=== PATIENT | female | born 1995 | race Caucasian/White ===

== ENCOUNTER 2024-11-20 14:14 | Emergency (ER) | payer OTHER, SELFPAY ==
[2024-11-20 15:05] VITALS: BP 92/56
--- NOTE | 2024-11-20 16:24 | ED.SKININJ ---
HPI-Injury
General
Chief Complaint: Bite
Source: patient
Exam Limitations: none
Time Seen by Provider: 11/20/24 15:37
Nursing documentation reviewed up to this point in time: agreed with
History of Present Illness-Injury
Is this injury a work related problem?: No
Is pt an associate of [facility]?: No
Initial Injury comments:
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 The dog is up-to-date on all vaccinations. She is unsure when the last tetanus
shot was. Denies any additional injuries other than a bite to the chin itself.
Review of Systems
Review of Systems
Allergies reviewed?: Yes
All Other Systems: ROS reviewed and negative except as documented in HPI and ROS
Phy Exam
Physical Exam
Physical Exam:
GENERAL: Alert , in no apparent distress
EYE: pupils equal and reactive
NECK: Supple, no significant adenopathy.
ENT: 2 lacerations subcutaneous in depth to the chin. The laceration extends just through the vermilion border on the left side laceration is 2 cm in total length there is another laceration that is L-shaped at midline of the chin 2.5 cm in total
length. o/p clr, mmm.
CARDIAC: Regular rate and rhythm .
LUNGS: Clear breath sounds bilaterally, no acute respiratory distress, no wheezes/rales/rhonchi
ABDOMEN: Soft, without focal tenderness, no r/g, no cvat
NEUROLOGICAL: Alert and oriented, no focal neuro deficits
SKIN: Warm and dry, skin intact.
MUSCULOSKELETAL: No edema, well perfused.
PSYCH: Normal and appropriate interaction.
Course
Orders/Labs/Results
Orders:
Orders
11/20/24 16:24
Amoxicillin 875 mg/Clav 125 mg [Augmentin 875 mg/125 mg] 1 tablet PO NOW STA
Tetanus/Diphth/Acelpertussis [Adacel] 0.5 ml IM .ONCE ONE
Vital Signs
Initial and Last Documented VS:
Initial Vital Signs
Temp Pulse Resp BP Pulse Ox
98.1 F 75 18 92/56 98
11/20/24 15:05 11/20/24 15:05 11/20/24 15:05 11/20/24 15:05 11/20/24 15:05
Last Documented Vital Signs
Temp Pulse Resp BP Pulse Ox
98.1 F 75 18 92/56 98
11/20/24 15:05 11/20/24 15:05 11/20/24 15:05 11/20/24 15:05 11/20/24 15:05
Procedures
Laceration Closure
Chin:
Status of Wound: clean
Size of Wound in cm: 4.5 (2 separate lacerations)
Description of Wound Edges: sharp
Preparation: cleaned with saline
Anesthesia: 1% Lidocaine with epi
Revision/Debridement: routine- no revision and irrigate-direct pressure
Wound exploration: explored to base- no FB and no tendon involvement
Type of Closure: single layer closure and interrupted sutures
Skin Closure Material: 5-0 nylon
Number of sutures: 8
Additional information:
4 sutures used in each laceration
MDM/Problems Addressed
MDM/Problems Addressed:
29-year-old female presenting to the emergency department today with concerns of a dog bite to her chin. She was started on Augmentin here and given an updated tetanus shot. The dog is very low risk for rabies and does have all vaccinations.
Laceration was cleaned thoroughly and due to its location on her face without significant risk of infection this was closed after risk and benefit assessment. Otherwise stable for outpatient management return precautions given. Advised for suture
removal in 5 to 7 days.
*Critical Care Note
Total Time (30-74mins, 75-104mins- exclusive of procedures): Not Applicable
ED Attending Note
-
Portions of this chart may have been created with voice recognition software.� Occasional wrong word or��sound alike� substitutions may have occurred due to the inherent limitations of voice recognition software.
Discharge Plan
Departure
Patient Disposition: Home (Routine Discharge)
Date of Disposition: 11/20/24
Time of Disposition: 16:29
Patient with high blood pressure during this ER visit?: No
Condition: Good
Covid-19: Not Applicable
Discharge Problem:
Dog bite of face
Instructions: Animal Bites (DC)
Prescriptions:
New
amoxicillin-pot clavulanate 875-125 mg tablet
1 tab PO BID 3 Days Qty: 6 0RF
Referrals:
Josh Martin, [Family Provider] -
Activity Restrictions/Additional Instructions:
You came to the emergency department today with concerns of a laceration to your chin from a dog bite. Please keep the area clean covered and follow-up in 6 to 7 days for suture removal. Please take the prescribed antibiotic to reduce risk of
infection. Return for any worsening, new or concerning symptoms.
Interventions
Interventions:
*Risk Screen - Suicide Last Done: 11/20/24 14:56
*General Assessment Last Done: 11/20/24 14:56
*Neglect/Abuse Screening Last Done: 11/20/24 14:56
Discharge Date and Time
Print Language: NEPALI
[2024-11-20] MEDS: AUGMENTIN 875 MG/125 MG 1 TABLET PO (16:50)
[2024-11-20] MEDS: ADACEL 0.5 ML IM (16:54)
== END 2024-11-20 16:59 | disposition home or self-care (01) ==
LOC: EMR 14:14
PROVIDERS: EMERGENCY PHYSICIAN Emergency Medicine; FAMILY PHYSICIAN Family Medicine
DX: S01.85XA Open bite of other part of head, initial encounter (principal); W54.0XXA Bitten by dog, initial encounter; Z23 Encounter for immunization
CPT/HCPCS: 99282; 12013; 90471; 90715

== ENCOUNTER 2024-11-23 02:01 | Inpatient (IN) | payer OTHER, SELFPAY ==
[2024-11-22 19:28] VITALS: BP 153/88
[2024-11-22 19:43] LABS: % Basophils 1.1 % (0-2); % Eosinophils 4.3 % (0-6); % Immature Granulocytes 0.2 % (0-0.5); % Lymphocytes 30.7 % (20.5-51.1); % Monocytes 10.8 % (1.7-9.3); % Neutrophils 52.9 % (42.2-75.2); Absolute Basophils 0.1 10^3/uL (0-0.2); Absolute Eosinophils 0.2 10^3/uL (0-0.7); Absolute Lymphocytes 1.7 10^3/uL (1.2-3.4); Absolute Monocytes 0.6 10^3/uL (0.1-0.6); Absolute Neutrophils 2.9 10^3/uL (1.4-6.5); Hematocrit 38.7 % (37.0-47.0); Hemoglobin 12.8 g/dL (12.0-16.0); Mean Corp Hgb Conc. 33.1 g/dL (33.0-37.0); Mean Corpuscular Hgb 27.6 pg (27.0-31.0); Mean Corpuscular Volume 83.4 fL (81.0-99.0); Mean Platelet Volume 9.8 fL (7.4-10.4); Nucleated Red Blood Cells % 0 %; Platelet Count 208 10^3/uL (130-400); Red Blood Cell Count 4.64 10^6/uL (4.20-5.40); Red Cell Dist. Width 13.2 % (11.5-14.5); White Blood Cell Count 5.4 10^3/uL (4.8-10.8)
[2024-11-22 19:54] LABS: Lactic Acid 0.7 mmol/L (0.7-2.0)
[2024-11-22 19:58] LABS: HCG, Serum Qualitative Screen Negative
[2024-11-22 20:03] LABS: ALT (SGPT) 16 U/L (0-35); AST (SGOT) 24 U/L (14-36); Albumin 4.3 g/dl (3.5-5.0); Alkaline Phosphatase 65 U/L (38-126); Blood Urea Nitrogen 11 mg/dl (7-17); Carbon Dioxide 27 mmol/L (22-30); Chloride 106 mmol/L (98-107); Glucose 103 mg/dl (70-99); Potassium 4.6 mmol/L (3.5-5.1); Sodium 140 mmol/L (135-145); Total Bilirubin 0.4 mg/dl (0.2-1.3); eGFR > 60.00
[2024-11-22 21:53] VITALS: BMI 23.0
[2024-11-22 22:05] VITALS: BP 114/62
--- NOTE | 2024-11-22 22:54 | ED.GENMED ---
History of Present Illness
<Rozina Barrera PA-C - Last Filed: 11/23/24 01:59>
General
Chief Complaint: Wound Check/Suture Removal
Source: patient
Exam Limitations: none
Time Seen by Provider: 11/22/24 22:53
Nursing documentation reviewed up to this point in time: agreed with
History of Present Illness
History of Present Illness:
29-year-old female with no past medical history presents emergency department today with concerns of purulent drainage from her sutured wounds starting yesterday. Of note, patient reports that 3 days ago, she was bitten by a boxer dog at her
clients home. Patient was seen in our emergency department and had wounds sutured and was started on Augmentin. She had 5 doses of Augmentin. Her last dose was this morning. Patient reports that today at home, she did have a temperature of 100.1.
She denies any nausea or vomiting. She denies any abdominal pain, chest pain, shortness of breath. Patient states that she started noticing that left side of her her jaw started to have pain and she had purulent drainage noted from both of her
lacerations. She also notes lip swelling and significant pain with eating. She denies any lip involvement of her laceration.
Review of Systems
<Rozina Barrera PA-C - Last Filed: 11/23/24 01:59>
Review of Systems
All Other Systems: ROS reviewed and negative except as documented in HPI and ROS
Phy Exam
<Rozina Barrera PA-C - Last Filed: 11/23/24 01:59>
Physical Exam
Physical Exam:
General: Patient is well appearing and in no acute distress; non-toxic
Skin: Two, 4.5 cm lacerations noted to chin with surrounding erythema and purulent drainage
Head: Normocephalic, atraumatic. Left sided submandibular fullness noted.
Eyes: Sclera non-icteric. EOMs intact.
Cardiac: Regular rate and rhythm
Peripheral Vascular: No lower extremity swelling or edema
Pulm: Normal respiratory effort
Musculoskeletal: TMJ joints intact bilaterally
Neuro: CN II-XII intact, no focal neurologic deficits.
Psychiatric: Appropriate mood and affect.
Course
<Rozina Barrera PA-C - Last Filed: 11/23/24 01:59>
Orders/Labs/Results
Orders:
Orders
11/22/24 19:31
Test Result ONCE
11/22/24 19:36
Complete Blood Count/With Diff Urgent
Comprehensive Metabolic Panel Urgent
HCG, Serum Qualitative Screen Urgent
Lactic Acid Urgent
11/22/24 23:14
0.9% Sodium Chloride 1000 ml [Nss] 1,000 ml IV BOLUS
Ketorolac [Toradol] 30 mg IV NOW STA
11/23/24 00:01
CT Facial Bones W/ Iv Contrast Urgent
Reason For Exam: left sided facial pain, swelling
11/23/24 00:40
Wound Culture [Wound/Abscess/Other Culture] Urgent
ARELIS Source: Abscess
Specimen Description:
Date Specimen was Collected: 11/23/24
Time Specimen was Collected: 00:34
11/23/24 01:06
Ampicillin/Sulbactam 3 G [Unasyn] 3 gm 0.9% Sodium Chloride 100 ml [Nss] 100 ml IV NOW
11/23/24 01:42
Admit/Transfer Patient As Directed
Co-Sign Provider:
Level of Care: Inpatient admission
Assign to:: Medical/Surgical
Physician / Group: Catracho
Diagnosis: Facial Cellulitis / Abscess, Dog Bite
Reason for Hospitalization: Facial Cellulitis / Abscess, Dog Bite
Expected length of stay greater than two midnights?: Yes
ELOS- Estimated Length of Stay in days: 2
I certify the patient meets the requirements for IP care: Yes
Ampicillin/Sulbactam 3 G [Unasyn] 3 gm 0.9% Sodium Chloride 100 ml [Nss] 100 ml IV NOW
PRN Pain Medication Management As Directed
May give lesser potent ordered pain med per pt: Yes
preference::
Protocol:: Medication orders for pain may be administered in a
manner that supports deferring to patient preference
when the pt is:
- Requesting an ordered lesser potent pain medication.
Least to most potent pain medications are defined
as: acetaminophen < NSAID < tramadol < opioids
(morphine, oxycodone, hydromorphone).
- Requesting a lesser dose of the same medication IF
ORDERED.
- Requesting a less intrusive route of administration
if both routes are prescribed by the provider (PO <
IV).
11/23/24 01:43
Code Status As Directed
Resuscitation Status: Full Code
Abnormal Lab Results
11/22/24
19:36
Monocytes % 10.8 H %
(1.7-9.3)
Glucose 103 H mg/dl
(70-99)
11/22/24 19:36
11/22/24 19:36
Vital Signs
Initial and Last Documented VS:
Initial Vital Signs
Temp Pulse Resp BP Pulse Ox
98.6 F 60 20 153/88 99
11/22/24 19:28 11/22/24 19:28 11/22/24 19:28 11/22/24 19:28 11/22/24 19:28
Last Documented Vital Signs
Temp Pulse Resp BP Pulse Ox
98.4 F 56 16 103/61 99
11/23/24 00:56 11/23/24 00:56 11/23/24 00:56 11/23/24 00:56 11/23/24 00:56
<Kurt Iverson MD - Last Filed: 11/23/24 00:53>
Orders/Labs/Results
Orders:
Orders
11/22/24 19:31
Test Result ONCE
11/22/24 19:36
Complete Blood Count/With Diff Urgent
Comprehensive Metabolic Panel Urgent
HCG, Serum Qualitative Screen Urgent
Lactic Acid Urgent
11/22/24 23:14
0.9% Sodium Chloride 1000 ml [Nss] 1,000 ml IV BOLUS
Ketorolac [Toradol] 30 mg IV NOW STA
11/23/24 00:01
CT Facial Bones W/ Iv Contrast Urgent
Reason For Exam: left sided facial pain, swelling
11/23/24 00:40
Wound Culture [Wound/Abscess/Other Culture] Urgent
ARELIS Source: Abscess
Specimen Description:
Date Specimen was Collected: 11/23/24
Time Specimen was Collected: 00:34
11/23/24 01:06
Ampicillin/Sulbactam 3 G [Unasyn] 3 gm 0.9% Sodium Chloride 100 ml [Nss] 100 ml IV NOW
11/23/24 01:42
Admit/Transfer Patient As Directed
Co-Sign Provider:
Level of Care: Inpatient admission
Assign to:: Medical/Surgical
Physician / Group: Catracho
Diagnosis: Facial Cellulitis / Abscess, Dog Bite
Reason for Hospitalization: Facial Cellulitis / Abscess, Dog Bite
Expected length of stay greater than two midnights?: Yes
ELOS- Estimated Length of Stay in days: 2
I certify the patient meets the requirements for IP care: Yes
Ampicillin/Sulbactam 3 G [Unasyn] 3 gm 0.9% Sodium Chloride 100 ml [Nss] 100 ml IV NOW
PRN Pain Medication Management As Directed
May give lesser potent ordered pain med per pt: Yes
preference::
Protocol:: Medication orders for pain may be administered in a
manner that supports deferring to patient preference
when the pt is:
- Requesting an ordered lesser potent pain medication.
Least to most potent pain medications are defined
as: acetaminophen < NSAID < tramadol < opioids
(morphine, oxycodone, hydromorphone).
- Requesting a lesser dose of the same medication IF
ORDERED.
- Requesting a less intrusive route of administration
if both routes are prescribed by the provider (PO <
IV).
11/23/24 01:43
Code Status As Directed
Resuscitation Status: Full Code
Abnormal Lab Results
11/22/24
19:36
Monocytes % 10.8 H %
(1.7-9.3)
Glucose 103 H mg/dl
(70-99)
11/22/24 19:36
11/22/24 19:36
Vital Signs
Initial and Last Documented VS:
Initial Vital Signs
Temp Pulse Resp BP Pulse Ox
98.6 F 60 20 153/88 99
11/22/24 19:28 11/22/24 19:28 11/22/24 19:28 11/22/24 19:28 11/22/24 19:28
Last Documented Vital Signs
Temp Pulse Resp BP Pulse Ox
98.4 F 56 16 103/61 99
11/23/24 00:56 11/23/24 00:56 11/23/24 00:56 11/23/24 00:56 11/23/24 00:56
<Rozina Barrera PA-C - Last Filed: 11/23/24 01:59>
MDM/Problems Addressed
Differential Diagnosis Includes:
ddx include suture abscess, cellulitis, sublingual/submandibular space infection
MDM/Problems Addressed:
29-year-old female presents emergency department today with concerns of purulent drainage from her sutured lacerations following a dog bite 3 days ago. She also has pain that extends into her left face and left jaw. She states that she has a lot
of pain with eating. Her lip started to swell as well. On exam, she does have a lot of purulent drainage from facial lacerations, with stitches removed from her lacerations swabs taken from the wound. She did have 5 doses of Augmentin. She will
likely require admission for IV abx.
Update decision made to admit patient in light of submandibular swelling. Will start unasyn. Stitches remoed. Case reviewed with attending. Pt referred for admission.
Chronic conditions affecting care:
n/a
<Rozina Barrera PA-C - Last Filed: 11/23/24 01:59>
*Pulse Oximetry
Patient hypoxic: no
*Critical Care Note
Total Time (30-74mins, 75-104mins- exclusive of procedures): Not Applicable
ED Attending Note
<Rozina Barrera PA-C - Last Filed: 11/23/24 01:59>
-
Portions of this chart may have been created with voice recognition software.� Occasional wrong word or��sound alike� substitutions may have occurred due to the inherent limitations of voice recognition software.
<Kurt Iverson MD - Last Filed: 11/23/24 00:53>
ED Attending Note
Patient seen and examined by attending physician: Yes
I performed the substantive portion of visit, reviewed & personally made and approve the management plan that is documented in note by myself or SAMANTHA.: Yes
ED Attending Note:
Patient bit by a dog 2+ days ago. Carefully irrigated sutured Augmentin started. However noted drainage swelling low-grade fever and swelling to her mandible.
On exam there is some erythema and swelling at the left mandible. No trismus no drooling or stridor. Wounds have been opened and sutures removed. Some mild drainage.
Impression is local infection secondary to dog bite with some extension to the mandible. CT scan pending. With the extension of the mandible patient will be admitted for IV antibiotics
Discharge Plan
Departure
Patient Disposition: Admit
Date of Disposition: 11/23/24
Time of Disposition: 01:07
Admit to: Med/Surg
Presentation/result/management discussed w/ accepting MD/DO: Hospitalist
Patient with high blood pressure during this ER visit?: Yes
Condition: Fair
Discharge Problem:
Infected dog bite
Prescriptions:
No Action
amoxicillin-pot clavulanate 875-125 mg tablet
1 tab PO BID 3 Days Qty: 6 0RF
escitalopram oxalate [Lexapro] 10 mg Tablet
10 mg PO DAILY
Referrals:
Josh Martin DO [Family Provider] -
Interventions
Interventions:
*Risk Screen - Suicide Last Done: 11/22/24 21:53
*General Assessment Last Done: 11/22/24 19:28
*Neglect/Abuse Screening Last Done: 11/22/24 21:53
*ED COVID-19 Vaccine History Last Done: 11/22/24 21:53
ED-Skin Assessment Last Done: 11/22/24 21:53
Discharge Date and Time
Print Language: GREEK
[2024-11-22] MEDS: TORADOL 30 MG IV (23:46)
[2024-11-22] MEDS: NSS 1000 IV (23:47)
[2024-11-23 00:56] VITALS: BP 103/61
--- NOTE | 2024-11-23 01:45 | HPS.HSE ---
Family Physician
-
Family Physician: Josh Martin
Chief Complaint
-
Facial Pain / Swelling / Discharge
History of Present Illness
Patient is a 29y F with no significant PMH who presents to ED complaining of pain, swelling, redness and discharge from the L lower lip / face. Patient states that she was bitten by a dog on 11/20. She presented immediately to the ED where the
wound was cleaned and two wounds (L lower lip / center of chin) were closed with 4 sutures each. Patient was prescribed Augmentin and discharged to home. She received an updated tetanus booster during that visit. Patient states that the dog is up
to date with all vaccinations (received documentation from the dog's owners).
Patient reports that she had a fever on Saturday. Today she noted increased swelling along the L mandible and swollen / painful lymph nodes under the jaw. She also appreciated purulent appearing drainage / discharge from the laceration sites.
Patient presented to the ED for further evaluation and treatment.
In the ED, sutures were removed and wounds cleaned. Some purulent material was expressed from the lacerations.
Medical History
Past Medical History
Past Medical History: Reports Other
Additional Past Medical History:
Anxiety / Depression
Past Surgical History: Reports Other
Additional Past Surgical History:
Bilateral Hip Surgeries / Labrum Repairs
Social History
Tobacco: Non-smoker
Alcohol: Occasional
Drug: None
Family History
Family History: Not pertinent
Allergies / Home Medications
Allergies reflects when Allergies were last updated in [facility].
Home Medications with original date entered in [facility]
Allergy/Medication List:
Allergies
Allergy/AdvReac Type Severity Reaction Status Date / Time
gluten Allergy Unknown Verified 11/22/24 19:28
Milk Containing Products Allergy Unknown Verified 11/22/24 19:28
(Dairy)
Home Medications
amoxicillin 875 mg-potassium clavulanate 125 mg tablet 1 tab PO BID 3 days #6 tabs 11/20/24
escitalopram oxalate 10 mg tablet (Lexapro) 10 mg PO DAILY 11/23/24
Review of Systems
-
History Source: Patient
A 12 point ROS was completed and negative except as noted: Yes
Constitutional: Reports Fever and Chills; Denies Fatigue
EENT: Reports Mouth Pain and Mouth Swelling
Respiratory: Denies Cough or Trouble Breathing
Cardiac: Denies Chest Pain or Palpitations
Abdomen/GI: Denies Abdominal Pain, Nausea, Vomiting or Diarrhea
Neurological: Denies Dizzy or Headache
Psych: Denies Depression or Anxiety
Physical Exam
Vital Signs
Vital Signs
Temp Pulse Resp BP Pulse Ox
98.4 F 56 16 103/61 99
11/23/24 00:56 11/23/24 00:56 11/23/24 00:56 11/23/24 00:56 11/23/24 00:56
Physical Exam
General: Other (29y F in no acute distress.)
HEENT: Other (Edema of the L lower lip and extending along the L mandible. Lacerations (L lower lip / chin) with small amount of secretions. Mild surrounding erythema.)
Respiratory: Clear; No Wheezes, Rales or Rhonchi
Neuro: AO x 3
Laboratory Results
-
11/22/24 19:36
11/22/24 19:36
Laboratory Results
Lactic Acid 0.7 mmol/L (0.7-2.0) 11/22/24 19:36
Total Bilirubin 0.4 mg/dl (0.2-1.3) 11/22/24 19:36
AST 24 U/L (14-36) 11/22/24 19:36
ALT 16 U/L (0-35) 11/22/24 19:36
Alkaline Phosphatase 65 U/L (38-126) 11/22/24 19:36
Impression/Plan
-
A/P: Patient is a 29y F with no significant PMH who presents to ED complaining of facial pain / swelling and discharge after recent dog bite.
Facial Cellulitis / Abscess
Dog Bite (11/20)
- Admit for further evaluation and treatment.
- Sutures removed in the ED.
- Monitor for continued drainage.
- IV abx with Unasyn for now and follow for clinical improvement.
- Supportive care with Tylenol / NSAIDs / etc.
- Plastic Surgery evaluation for additional recommendations.
Anxiety / Depression
- Stable. Continue escitalopram.
DVT Prophylaxis: SCDs
Code Status: Full
[2024-11-23] MEDS: UNASYN IV ×5 (01:53→21:47)
[2024-11-23 06:23] LABS: Hematocrit 33.1 % (37.0-47.0); Hemoglobin 10.7 g/dL (12.0-16.0); Mean Corp Hgb Conc. 32.3 g/dL (33.0-37.0); Mean Corpuscular Hgb 27.6 pg (27.0-31.0); Mean Corpuscular Volume 85.5 fL (81.0-99.0); Mean Platelet Volume 9.8 fL (7.4-10.4); Platelet Count 170 10^3/uL (130-400); Red Blood Cell Count 3.87 10^6/uL (4.20-5.40); Red Cell Dist. Width 13.2 % (11.5-14.5); White Blood Cell Count 4.7 10^3/uL (4.8-10.8)
[2024-11-23 07:07] LABS: Blood Urea Nitrogen 12 mg/dl (7-17); Calcium 8.7 mg/dl (8.4-10.2); Carbon Dioxide 23 mmol/L (22-30); Chloride 109 mmol/L (98-107); Estimated Creatinine Clearance 101 ml/min; Glucose 90 mg/dl (70-99); Sodium 139 mmol/L (135-145); eGFR > 60.00
[2024-11-23 08:28] VITALS: BP 135/105
--- NOTE | 2024-11-23 09:30 | W.PN.HOSP.TC ---
Today's Communication/Plan
-
await ID and Plastics evaluations
continue IV abx, supportive care
Assessment / Plan
Assessment / Plan
Assessment:
Facial Cellulitis/Abscess
Dog Bite (11/20/24)
- CT: Soft tissue swelling in the region of the left lower lip/mandibular region. Small focus of hypoattenuation within the subcutaneous soft tissues, measuring 2.0 x 1.4 x 1.2 cm, which appears to communicate to the skin. This may represent
phlegmon or early abscess.
- sutures removed in ER
- continue drainage
- ID consult; continue Unasyn
- Plastic surgery consult given laceration
- Supportive care with Tylenol / NSAIDs / etc.
Anxiety/Depression
- Stable. continue escitalopram.
DVT Prophylaxis: SCDs
Code Status: Full
Anticipated Discharge: 24 - 48 hours
Subjective/Interval History
-
Date of Service: November 23, 2024
continues with pus drainage
pain and fever burden improving
tolerating IV abx
Objective Data
-
Labs:
Laboratory Results
11/23/24
05:54
WBC 4.7 L
Hgb 10.7 L
Hct 33.1 L
Plt Count 170
Sodium 139
Potassium 4.0
Chloride 109 H
Carbon Dioxide 23
BUN 12
Creatinine 0.8
Glucose 90
Calcium 8.7
Vital Signs:
Vital Signs
Temp Pulse Resp BP Pulse Ox
97.9 F 54 16 135/105 98
11/23/24 08:28 11/23/24 08:28 11/23/24 08:28 11/23/24 08:28 11/23/24 08:28
Physical Exam
-
General: No Apparent Distress
HEENT: Normocephalic and Other (Edema of the L lower lip and extending along the L mandible. Lacerations (L lower lip / chin) with small amount of secretions. Mild surrounding erythema.)
Cardiac: Regular Rhythm and S1/S2
GI: Soft
Genito-urinary: No Costovertebral Tender
Musculoskeletal: No Edema
Neuro: AO x 3
Hematologic / Lymphatic: No Lymphadenopathy
Psych: Calm
Data Reviewed
-
Total Time Spent with Patient (in minutes): 42
Labs: Labs Reviewed by me
--- NOTE | 2024-11-23 10:29 | CM ---
CM met with pt bedside
Pt resides with her spouse and mother in-law in a [place] with [address]
Pt is indep with her ADLs, no DMEs, drives+
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
PCP- Josh Martin
Rx- [facility] [place]
Pt admitted for infected dog bite
Admissions provided dog bite reporting form to pt and will fax to [facility] upon completion
Awaiting ID and plastic consult
Discharge Disposition- anticipate home no needs
--- NOTE | 2024-11-23 13:03 | CON.ID ---
Consultation
-
Date/Time Consultation Requested: 11/23/24 8:37
Date/Time Consultation Performed: 11/23/24 13:03
Requesting Provider: Dr Landa
Performing Provider: Dr Swan
Reason for Consultation: Facial Pain / Swelling / Discharge
Chief Complaint / Past History
Chief Complaint
dog bite
History of Present Illness
Ms Poole is a 29 year old female without significant past medical history who first presented here 11/20 for a provoked dog bite to the face, dog up to date on vaccines, wounds were cleaned in the ER and she had stitches and Tdap vaccination and
augmentin, she now represents for fever, increasing swelling, tenderness and purulent drainage from the wounds. In the ER today sutures were removed and aerobic cultures were obtained - no anaerobic cultures done. Plastics is consulted.
Since arrival here patient has been afebrile, bp stable, wbc initially 5.4 now 4.7, hgb 10.7, plt 170, no L shift, Na 139, cr 0.8, lfts wnl, hcg negative, facial bone CT: Small focus of hypoattenuation within the subcutaneous soft tissues,
measuring 2.0 x 1.4 x 1.2 cm, which appears to communicate to the skin. This may represent phlegmon or early abscess. a mrsa screen is pending, patient is currently on unasyn, ID is consulted for assistance with management.
Past History
Additional Past Medical History:
Anxiety/Depression
Past Surgical History: None
Allergy History:
gluten Allergy (Verified 11/22/24 19:28)
Unknown
Milk Containing Products (Dairy) Allergy (Verified 11/22/24 19:28)
Unknown
Medications Reviewed: Yes
Social History
Tobacco: Non-Smoker
Alcohol: Occasional
Drug: None
Family History
Family History: Not Pertinent
Review of Systems
Review of Systems
General: Negative Fever or Chills
All systems: All other systems were reviewed and were negative
Vital Signs
Temp Pulse Resp BP Pulse Ox
97.9 F 54 16 135/105 98
11/23/24 08:28 11/23/24 08:28 11/23/24 08:28 11/23/24 08:28 11/23/24 08:28
Physical Exam
Physical Exam
Constitutional: No Acute Distress
Cardiovascular: Regular Rate and S1/S2; Negative Murmur or Rub
Pulmonary: Clear and Symmetric; Negative Wheezes, Rales or Rhonchi
Gastrointestinal: Soft, Non Tender, Non Distended and Normal Bowel Sounds
Skin: Warm and Dry; Negative Rash or Jaundice
Wound: Other (below the charles border, mild tenderness, no significant swelling, mild serous drainage)
Lab / Diagnostic Study Results
11/23/24 05:54
11/23/24 05:54
Abs Immat Gran (auto) 0.0 10^3/uL (0-0.05) 11/22/24 19:36
Absolute Neuts (auto) 2.9 10^3/uL (1.4-6.5) 11/22/24 19:36
Absolute Lymphs (auto) 1.7 10^3/uL (1.2-3.4) 11/22/24 19:36
Absolute Monos (auto) 0.6 10^3/uL (0.1-0.6) 11/22/24 19:36
Absolute Basos (auto) 0.1 10^3/uL (0-0.2) 11/22/24 19:36
Immature Gran % 0.2 % (0-0.5) 11/22/24 19:36
Neutrophils % 52.9 % (42.2-75.2) 11/22/24 19:36
Lymphocytes % 30.7 % (20.5-51.1) 11/22/24 19:36
Monocytes % 10.8 % (1.7-9.3) H 11/22/24 19:36
Eosinophils % 4.3 % (0-6) 11/22/24 19:36
Basophils % 1.1 % (0-2) 11/22/24 19:36
Lactic Acid 0.7 mmol/L (0.7-2.0) 11/22/24 19:36
Microbiology Results
Micro:
11/23/24 05:54 MRSA Screen - Pending
Nose
11/23/24 00:40 Wound Culture - Pending
Abscess Gram Stain - Pending
Assessment / Plan
Cellulitis due to Dog Bite
- stitches removed today
- had Tdap
- dog is known to be vaccinated for rabies
- no foreign body on CT scan
- appreciate plastics input
- wound compresses to facilitate drainage
- follow up gram stain and culture of the puss
- agree with unasyn, when stable for dc can transition back to augmentin 875/125 mg po bid x14 day course
--- NOTE | 2024-11-23 15:10 | PTCARENOTE ---
Patient with stable vital signs this shift, voiding in bathroom, afebrile, denies pain from wound site. Wound dressing being changed per order. Pt is awaiting plastic surgery consult. RN updated patient on plan of care and medication administration.
See MAR/flowsheets for further care details.
--- NOTE | 2024-11-23 15:40 | WOUNDNOTE ---
[facility] RN note: Patient admitted with infected dog bite.
See H&P for complete history.
PMH: anxiety, depression, b/l labrum tear repair 2019.
Wound Location and type/assessment: Patient admitted with: dog bite on chin that patient is now returning to ER, where she had stitches 3 days ago for same dog bite. Patient states since on IV antibiotics swelling has gone down and feeling better.
Has warm compress with gauze over site, patient states it drained allot, now slowing down. Plastic surgeon Dr. Paul and I&D on consult.
Appetite: good.
Pressure redistribution devices in place: can be on Accumax, is ad martina.
Plan: Today recommend continue warm compresses and gauze to absorb drainage until further orders from Dr. Paul.
Will confirm orders with hospitalist and updated nurse. Updated care plan and will follow as needed.
Note to case management of equipment requested for discharge: TBD
Recommend follow up with Dr. Paul.
--- NOTE | 2024-11-23 16:20 | PTCARENOTE ---
Received pt from ED via stretcher. Pt ambulated to bed independently. AAOx3. Pt c/o tenderness throughout L jaw, able to tolerate. Assessed and oriented to room. Pt provided towels and soap for a shower. Call shrestha within close reach. Will cont to
monitor.
[2024-11-23 16:24] VITALS: BMI 22.7
[2024-11-23 16:26] VITALS: BP 149/74
--- NOTE | 2024-11-23 17:00 | PTCARENOTE ---
PCT placed bin of hygiene supplies at bedside and informed pt of content. Pt requested to take a shower. Right hand IV site covered with glove. Pt instructed how to use shower. This RN informed pt that towels and body wash were placed on right side
of sink. Pt informed this RN, PCT and nurse manager case management that she utilized toothbrush and toothpaste that was on bathroom sink. PCT informed pt that toothpaste and toothbrush were in contents of hygiene bin. Pt stated, 'I may be sleep deprived or
something but I thought they said I could use all of the stuff on the sink'. New toothbrush and toothpaste provided.
--- NOTE | 2024-11-23 17:00 | PTCARENOTE ---
Upon arrival to bathroom, this RN and PCT visualized tube of tooth paste indented on L side of bathroom sink, a tooth brush without plastic wrap on, with half empty bottle of mouth wash.
--- NOTE | 2024-11-23 18:12 | PTCARENOTE ---
Pt informed this RN that she is gluten and dairy intolerant. Pt informed on how to call cafeteria for meal.
[2024-11-23] MEDS: LEXAPRO 10 MG PO (21:48)
[2024-11-23 23:02] VITALS: BP 103/66
[2024-11-24] MEDS: UNASYN IV ×3 (04:11→15:01)
[2024-11-24 06:59] LABS: Hematocrit 35.3 % (37.0-47.0); Hemoglobin 11.7 g/dL (12.0-16.0); Mean Corp Hgb Conc. 33.1 g/dL (33.0-37.0); Mean Corpuscular Hgb 27.6 pg (27.0-31.0); Mean Corpuscular Volume 83.3 fL (81.0-99.0); Mean Platelet Volume 9.2 fL (7.4-10.4); Platelet Count 182 10^3/uL (130-400); Red Blood Cell Count 4.24 10^6/uL (4.20-5.40); Red Cell Dist. Width 13.2 % (11.5-14.5); White Blood Cell Count 4.2 10^3/uL (4.8-10.8)
[2024-11-24 07:17] LABS: Blood Urea Nitrogen 14 mg/dl (7-17); Carbon Dioxide 26 mmol/L (22-30); Chloride 108 mmol/L (98-107); Estimated Creatinine Clearance 90 ml/min; Glucose 96 mg/dl (70-99); Potassium 4.3 mmol/L (3.5-5.1); Sodium 141 mmol/L (135-145); eGFR > 60.00
[2024-11-24 07:25] VITALS: BP 100/58
[2024-11-24] MEDS: FLUSH (NSS) 2 FLUSH IV (09:04)
--- NOTE | 2024-11-24 11:31 | W.PN.ID1 ---
Date of Service
Date of Service: November 24, 2024
Today's Communication
- agree with unasyn, when stable for dc can transition back to augmentin 875/125 mg po bid x14 day course
Assessment / Plan
Cellulitis due to Dog Bite
- stitches removed 11/24
- had Tdap
- dog is known to be vaccinated for rabies
- appreciate plastics input
- wound compresses to facilitate drainage
- follow up gram stain and culture of the puss - few CONS thus far
- agree with unasyn, when stable for dc can transition back to augmentin 875/125 mg po bid x14 day course
Chief Complaint
-: Cellulitis
Subjective / Review of Systems
afebrile
bp stable
wound culture with few CONS
Vital Signs / Physical Exam
Vital Signs
Vital Signs
Temp Pulse Resp BP Pulse Ox
98.0 F 62 16 100/58 98
11/24/24 07:25 11/24/24 07:25 11/24/24 07:25 11/24/24 07:25 11/24/24 07:25
Physical Exam
Constitutional: No Acute Distress
Head: Other (less erythema, no current drainge, no tenderness, wounds stable)
Cardiovascular: Regular Rate and S1/S2; Negative Murmur or Rub
Pulmonary: Clear and Symmetric; Negative Wheezes or Rales
Gastrointestinal: Non Distended
Skin: Warm and Dry; Negative Rash or Jaundice
Neurological: Awake
Objective Data
Lab Data
Lab Results
11/24/24 06:36
11/24/24 06:36
Estimated Creat Clear 90 ml/min 11/24/24 06:36
Lactic Acid 0.7 mmol/L (0.7-2.0) 11/22/24 19:36
Total Bilirubin 0.4 mg/dl (0.2-1.3) 11/22/24 19:36
AST 24 U/L (14-36) 11/22/24 19:36
ALT 16 U/L (0-35) 11/22/24 19:36
Alkaline Phosphatase 65 U/L (38-126) 11/22/24 19:36
Most recent labs reviewed.
Wound/abscess/other Cult Preliminary 11/24/24-926
Few Coagulase neg. staphylococcus
Gram Stain Preliminary 11/23/24-1338
Few WBC
No Organisms Seen
Micro Results:
11/23/24 00:40 Wound Culture - Preliminary
Abscess Gram Stain - Preliminary
11/23/24 05:54 MRSA Screen - Final
Nose No Methicillin Resistant Staphylococcus aureus isolated.
Care Review
Plan reviewed with: Physician (Dr Paul, Dr Landa - indira)
--- NOTE | 2024-11-24 12:05 | CM ---
Patient seen at bedside.
Patient states will be discharged later today
stitches removed
no needs
PLAN: home, no needs
to transport
--- NOTE | 2024-11-24 12:53 | W.PN.HOSP.TC ---
Today's Communication/Plan
-
dc to home
Assessment / Plan
Assessment / Plan
Assessment:
Facial Cellulitis/Abscess
Dog Bite (11/20/24)
- CT: Soft tissue swelling in the region of the left lower lip/mandibular region. Small focus of hypoattenuation within the subcutaneous soft tissues, measuring 2.0 x 1.4 x 1.2 cm, which appears to communicate to the skin. This may represent
phlegmon or early abscess.
- sutures removed in ER which has faciliated drainage
- d/w Plastics and ID
- warm compresses to facilitate drainage. Clean with soap+water, pat dry with clean linens or towels. Can use band aids to cover. Can apply Aquaphor.
- DC on 2 weeks Augmentin
- Supportive care with Tylenol / NSAIDs / etc.
Anxiety/Depression
- Stable. continue escitalopram.
DVT Prophylaxis: SCDs
Code Status: Full
More than 30 minutes spent in discharge including
Final examination of the patient
Summarizing hospital stay
Instructions for continuing care to all relevant caregivers
Preparation of discharge records, prescriptions, and referral forms
Total time spent (in minutes): 41
Anticipated Discharge: Today
Subjective/Interval History
-
Date of Service: November 24, 2024
feels much improved
pain/swelling improving
Objective Data
-
Labs:
Laboratory Results
11/24/24
06:36
WBC 4.2 L
Hgb 11.7 L
Hct 35.3 L
Plt Count 182
Sodium 141
Potassium 4.3
Chloride 108 H
Carbon Dioxide 26
BUN 14
Creatinine 0.9
Glucose 96
Calcium 9.0
Vital Signs:
Vital Signs
Temp Pulse Resp BP Pulse Ox
98.0 F 62 16 100/58 98
11/24/24 07:25 11/24/24 07:25 11/24/24 07:25 11/24/24 07:25 11/24/24 07:25
I&O
11/23/24 11/24/24 11/25/24
06:59 06:59 06:59
Intake Total 1180 / 1180
Balance 1180 / 1180
Physical Exam
-
General: No Apparent Distress
HEENT: Normocephalic and Atraumatic
Respiratory: Negative Wheezes
Cardiac: Regular Rhythm and S1/S2
GI: Soft and Nontender
Neuro: AO x 3
Psych: Calm
Data Reviewed
-
Total Time Spent with Patient (in minutes): 42
Labs: Labs Reviewed by me
--- NOTE | 2024-11-24 12:58 | W.DS.TRANS ---
DC Summary - Embedded Developer
-
Discharge Instructions:
Discharge Diagnosis/Procedures dog bite to face with underlying abscess/
infection
Diet Regular
Activity As tolerated
Instructions:
Stand-Alone Forms:
Changes to Home Medications: No
Discharge Medications:
DC Medications w/original date entered in [id number]
escitalopram oxalate 10 mg tablet (Lexapro) 10 mg PO DAILY 11/23/24
amoxicillin 875 mg-potassium clavulanate 125 mg tablet 1 tab PO BID 14 days #28 tabs 11/24/24
Home Medication Changes
Pending Results: No
Total time spent discharging patient (in min): 41
[2024-11-24 15:15] VITALS: BP 97/57
== END 2024-11-24 15:45 | disposition home or self-care (01) | DRG 603 ==
LOC: 3 WEST ACU 02:01
PROVIDERS: Emergency Medicine; ADMITTING PHYSICIAN Hospitalist; ATTENDING PHYSICIAN Internal Medicine; CONSULT PHYSICIAN Internal Medicine Infectious Disease; CONSULT PHYSICIAN Surgery Plastic and Reconstructive Surgery; EMERGENCY PHYSICIAN Emergency Medicine; FAMILY PHYSICIAN Family Medicine
DX: L03.211 Cellulitis of face (principal); S01.85XA Open bite of other part of head, initial encounter; W54.0XXA Bitten by dog, initial encounter; F32.A Depression, unspecified
CPT/HCPCS: 70487; 80048; 80053; 83605; 84703; 85025; 85027; 87070; 87147; 87205; 96361; 96374; 99285; Q9967